=== PATIENT | female | born 1945 | race Caucasian/White ===

== ENCOUNTER 2020-05-19 09:16 | Outpatient (RCR) | payer MEDICARE, BC | END 2020-05-19 12:30 | LOC: OPPGERO 09:16 | DX: F32.1 Major depressive disorder, single episode, moderate (principal); F41.1 Generalized anxiety disorder; T42.4X2A Poisoning by benzodiazepines, intentional self-harm, initial encounter; I10 Essential (primary) hypertension; M19.90 Unspecified osteoarthritis, unspecified site; G47.00 Insomnia, unspecified; I26.92 Saddle embolus of pulmonary artery without acute cor pulmonale; L30.9 Dermatitis, unspecified; R32 Unspecified urinary incontinence; F10.99 Alcohol use, unspecified with unspecified alcohol-induced disorder; Z62.810 Personal history of physical and sexual abuse in childhood; Z63.5 Disruption of family by separation and divorce; Z63.4 Disappearance and death of family member; Z82.49 Family history of ischemic heart disease and other diseases of the circulatory system; Z82.61 Family history of arthritis ==

== ENCOUNTER 2020-05-20 08:10 | Outpatient (RCR) | payer MEDICARE, BC | END 2020-06-18 15:49 | disposition still patient (30) | LOC: OPPGERO 08:10 | DX: F41.8 Other specified anxiety disorders (principal); I10 Essential (primary) hypertension; H40.9 Unspecified glaucoma; M19.90 Unspecified osteoarthritis, unspecified site; G47.00 Insomnia, unspecified ==

== ENCOUNTER 2020-06-21 09:14 | Outpatient (RCR) | payer MEDICARE, BC | END 2020-07-16 15:57 | disposition home or self-care (01) | LOC: OPPGERO 09:14 | DX: F32.9 Major depressive disorder, single episode, unspecified (principal); F41.8 Other specified anxiety disorders; I10 Essential (primary) hypertension; H40.9 Unspecified glaucoma; R39.81 Functional urinary incontinence; Z63.5 Disruption of family by separation and divorce; Z63.4 Disappearance and death of family member ==

== ENCOUNTER 2020-07-20 09:42 | Outpatient (RCR) | payer MEDICARE, BC | END 2020-08-18 15:24 | disposition home or self-care (01) | LOC: OPPGERO 09:42 | DX: F32.9 Major depressive disorder, single episode, unspecified (principal); F41.9 Anxiety disorder, unspecified; I10 Essential (primary) hypertension; H40.9 Unspecified glaucoma; M19.90 Unspecified osteoarthritis, unspecified site; G47.00 Insomnia, unspecified; R32 Unspecified urinary incontinence ==